=== PATIENT | male | born 2000 | race Hispanic/Latino ===

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

== ENCOUNTER 2020-12-31 02:43 | Emergency (ER) | payer BC, SELFPAY ==
--- NOTE | ~2020-12-31 | CT_ITS ---
EXAMINATION: CT abdomen pelvis wo con DATE: 12/31/2020 06:54 INDICATION: Right lower quadrant abdominal pain. Testicular pain. TECHNIQUE: Computed tomography (CT) of the abdomen and pelvis was performed without intravenous contr ast. Automated exposure control and iterative reconstruction technique were employed. The dose-length product was 239.00 mGy-cm. COMPARISON: None FINDINGS: Lung bases are clear. Heart size is normal. No pericardial or pleural effusion. There is diffuse incr eased hepatic attenuation. Gallbladder, spleen, pancreas, bilateral adrenal glands and kidneys are no rmal. Bowels including the appendix are normal. Bladder is normal. Prostate is enlarged for age measu ring 5 x 3.5 cm. No free intraperitoneal gas or fluid. No pathologically enlarged abdominal or pelvic lymphadenopathy. Bones are unremarkable. IMPRESSION: 1. Nonspecific prostatomegaly which is atypical for age. Consider prostatitis given the left testicul ar pain. 2. Diffuse increased hepatic attenuation which can be seen with iron deposition such as hemosiderosis or hemachromatosis, copper deposition Chris disease, glycogen storage disease or chronic amiodarone use. Reviewed, dictated and finalized at location A. IMPRESSION: 1. Nonspecific prostatomegaly which is atypical for age. Consider prostatitis g iven the left testicular pain. 2. Diffuse increased hepatic attenuation which can be seen with iron deposition such as hemosiderosis or hemachromatosis, copper deposition Chris disease, gl ycogen storage disease or chronic amiodarone use.
--- NOTE | ~2020-12-31 | US_ITS ---
EXAMINATION: US scrotum doppler DATE: 12/31/2020 03:44 INDICATION: Left testicular pain TECHNIQUE: Testicular sonogram utilizing grayscale and Doppler COMPARISON: None. FINDINGS: The right testis measures 4.0 x 1.9 x 3.9 cm. The left testis measures 4.4 x 1.8 x 3.0 cm. Symmetric normal grayscale appearance to both testes. There is normal vascular flow to both testes. 4 mm anecho ic right epididymal cyst. The right epididymis is otherwise normal with normal vascular flow. The lef t epididymis is normal with normal vascular flow. There is no varicocele or hydrocele. IMPRESSION: 1. 4 mm right epididymal cyst. Otherwise normal scrotal ultrasound. Reviewed, dictated and finalized at location A.
[2020-12-31 02:47] VITALS: BP 98/49; PULSE 66; RESP 15; TEMP 36.3; O2SAT 100
--- NOTE | 2020-12-31 02:55 | ED.GENADULT ---
HPI - General Adult General Chief complaint: Unspecified <Pelon Serrano MD - Last Filed: 12/31/20 05:20> Stated complaint: twisted testicle <Pelon Serrano MD - Last Filed: 12/31/20 05:20> Time Seen by Provider: 12/31/20 02:46 <Pelon Serrano MD - Last Filed: 12/31/20 05:20> History of Present Illness HPI narrative: 20 yo male w/ no medical history presents to the ED for twisted testicle He was awoken form sleep by severe left testicle pain. Nothing makes the pain any better or worse. He had 2 syncopal episodes due to the pain. He has never had this before. <Pelon Serrano MD - Last Filed: 12/31/20 05:20> Related Data Allergies/adverse reactions: Allergies Allergy/AdvReac Type Severity Reaction Status Date / Time peanut Allergy Mild Swelling Verified 12/31/20 03:45 of Lip/Tongue/Throat tree nut Allergy Unknown Swelling Verified 12/31/20 03:45 of Lip/Tongue/Throat <Pelon Serrano MD - Last Filed: 12/31/20 05:20> Review of Systems Review of Systems: All systems reviewed & are unremarkable except as noted in HPI and below <Pelon Serrano MD - Last Filed: 12/31/20 05:20> Constitutional: Constitutional: Reports no additional constitutional complaints <Pelon Serrano MD - Last Filed: 12/31/20 05:20> Cardiovascular: Cardiovascular: Denies chest pain <Pelon Serrano MD - Last Filed: 12/31/20 05:20> Respiratory: Respiratory: Denies dyspnea <ePlon Serrano MD - Last Filed: 12/31/20 05:20> Gastrointestinal: Gastrointestinal: Denies abdominal pain <Pelon Serrano MD - Last Filed: 12/31/20 05:20> Genitourinary: Genitourinary: Reports as per HPI <Pelon Serrano MD - Last Filed: 12/31/20 05:20> Exam Const: General: healthy appearing and well developed <Pelon Serrano MD - Last Filed: 12/31/20 05:20> Nutritional Appearance: well nourished <Pelon Serrano MD - Last Filed: 12/31/20 05:20> Orientation/consciousness: patient oriented x3 <Pelon Serrano MD - Last Filed: 12/31/20 05:20> Other: Mild distress <Pelon Serrano MD - Last Filed: 12/31/20 05:20> HENMT: Head: normal to inspection <ePlon Serrano MD - Last Filed: 12/31/20 05:20> Chest: Chest palpation & inspection: no tenderness <Pelon Serrano MD - Last Filed: 12/31/20 05:20> Resp: Effort & Inspection: normal respiratory effort <Pelon Serrano MD - Last Filed: 12/31/20 05:20> Auscultation: clear to auscultation bilaterally, no rales, no rhonchi and no wheezes <Pelon Serrano MD - Last Filed: 12/31/20 05:20> Cardio: Jugular venous distension: no JVD <Pelon Serrano MD - Last Filed: 12/31/20 05:20> Rate: regular rate <Pelon Serrano MD - Last Filed: 12/31/20 05:20> Rhythm: regular rhythm <Pelon Serrano MD - Last Filed: 12/31/20 05:20> Heart sounds: no murmurs <Pelon Serrano MD - Last Filed: 12/31/20 05:20> GI: Inspection: non-distended <Pelon Serrano MD - Last Filed: 12/31/20 05:20> GI Palp: Yes Soft to palpation and No Tenderness to palpation present (GI) <Pelon Serrano MD - Last Filed: 12/31/20 05:20> : Penis: Yes normal penis and Yes uncircumcised <Pelon Serrano MD - Last Filed: 12/31/20 05:20> Scrotum: scrotum normal <Pelon Serrano MD - Last Filed: 12/31/20 05:20> Testes: epididymal tenderness on the left <Pelon Serrano MD - Last Filed: 12/31/20 05:20> Skin: General skin exam: normal color <Pelon Serrano MD - Last Filed: 12/31/20 05:20> Neuro: General: patient oriented x3 and moves all extremities <Pelon Serrano MD - Last Filed: 12/31/20 05:20> Speech: normal speech <Pelon Serrano MD - Last Filed: 12/31/20 05:20> Extrem: General: no edema <Pelon Serrano MD - Last Filed: 12/31/20 05:20> Psych: Appearance: well kempt <Pelon Serrano MD - Last Filed: 12/31/20 05:20> Affect: normal affect <Pelon Campos
[2020-12-31] MEDS: MORPHINE SULFATE (*CRX) 4 MG/ML INJ IV PUSH (03:17)
[2020-12-31 03:28] LABS: Basophils Percent Auto 0.4 % (0.2-1.2); Eosinophils Absolute Auto 0.2 K/mm3 (0-0.3); Eosinophils Percent Auto 1.9 % (0-4.4); Hematocrit 41.8 % (42.0-52.0); Hemoglobin 13.9 g/dL (14.0-18.0); Immature Granulocyte Absolute 0.02 K/mm3 (0.00-0.031); Immature Granulocyte Percent A 0.2 % (0-0.5); Lymphocytes Absolute Auto 4.23 K/mm3 (0.9-3.2); Lymphocytes Percent Auto 52.6 % (18.3-44.2); Mean Corpuscular HGB Conc 33.3 g/dl (32-36); Mean Corpuscular Hemoglobin 29.6 pg (26-34); Mean Corpuscular Volume 89.1 fl (80-100); Mean Platelet Volume 10.7 fl (7.4-10.4); Monocytes Absolute Auto 0.6 K/mm3 (0.1-0.6); Monocytes Percent Auto 7.3 % (2.6-8.5); Neutrophils Percent Auto 37.6 % (45.5-73.1); Platelet Count Result 225 k/mm3 (150-375); Red Blood Count 4.69 M/mm3 (4.6-6.20); Red Cell Distribution Width 12.7 % (11.5-14.5)
[2020-12-31 03:38] LABS: Alanine Aminotransferase 20 U/L (4-50); Albumin Level 4.3 g/dL (3.5-5.1); Alkaline Phosphatase 73 U/L (38-126); Anion Gap 10 mmol/L (8-16); Aspartate Amino Transferase 25 U/L (17-59); Bilirubin,Total 0.5 mg/dL (0.2-1.3); Blood Urea Nitrogen 17 mg/dL (9-20); Calcium 9.6 mg/dL (8.4-10.2); Carbon Dioxide 22 mmol/L (22-30); Chloride 105 mmol/L (98-107); Estimated Glomerular Filt Rate > 60; Glucose 136 mg/dL (65-110); Potassium 4.1 mmol/L (3.4-5.0); Sodium 137 mmol/L (137-145)
[2020-12-31 03:47] LABS: Partial Thromboplastin Time 26.2 SECONDS (22.3-36.8); Prothrombin Time 12.9 Seconds (11.1-14.7)
[2020-12-31 04:34] LABS: Add Urine Microscopic? YES; Appearance Urine Clear (Clear); Bacteria Urine Trace /hpf; Bilirubin Urine Negative (Negative); Blood Urine 1+ (Negative); Color Urine Yellow (Yellow); Glucose Urine UA Negative (Negative); Ketones Urine Negative (Negative); Leukocyte Esterase Ur Negative LEU/UL (Negative); Mucus Urine Rare /lpf; Nitrate Urine Negative (Negative); Protein Urine 1+ mg/dL (Negative); Specific Grav Ur 1.028 (1.001-1.035); WBC Urine 0-3 /hpf
[2020-12-31 08:29] VITALS: RESP 18
== END 2020-12-31 08:30 | disposition home or self-care (01) ==
PROVIDERS: Emergency Medicine; Emergency Provider Emergency Medicine; PCP Pediatrics
DX: N41.0 Acute prostatitis (principal); R93.2 Abnormal findings on diagnostic imaging of liver and biliary tract; N50.3 Cyst of epididymis
CPT/HCPCS: 36415; 74176; 76870; 80053; 81001; 85025; 85610; 85730; 93976; 96374; 99284; J2270